=== PATIENT | male | born 1960 | race Caucasian/White ===

== ENCOUNTER → 2017-03-26 | Day surgery (SDC) | payer OTHER ==
[~2017-03-26] MED LIST: BUPIVACAINE HCL PF 0.25% 30 ML VIAL ONE; LACTATED RINGER'S 1000 ML INJ 1,000 ML ONE; LIDOCAINE HCL 1% PF 30 ML VIAL ONE; LOSA50TA PO; MIDAZOLAM HCL 2 MG/2 ML VIAL ONE; NEOMYCIN/POLYMYXIN/BACITRACIN OINT 15 GM TUBE ONE; ONDANSETRON HCL 4 MG/2 ML VIAL IV PUSH ONE; PROPOFOL 200 MG/20 ML AMP IV ONE; TEST200I13 IM; ceFAZolin INJ 1,000 MG VIAL ONE
--- NOTE | 2017-03-26 15:06 | TN ---
cc: SHAMIR ANTHONY M.D. DATE OF SURGERY: 03/26/2017 PREOPERATIVE DIAGNOSIS 1. 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 2. Penile lesions of unknown behavior (ICD-10 code N50.9). POSTOPERATIVE DIAGNOSIS 1. 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 2. Penile lesions of unknown behavior (ICD-10 code N50.9). PROCEDURE 1. Excision of malignant penile lesion (4.5 cm)(CPT code 00771). 2. Excision of benign penile lesion (1.0 cm)(CPT code 08258). 3. Electrodesiccation of penile lesions (CPT code 01716). INDICATIONS Mr. 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 He additionally has another lesion on the ventral shaft of the penis that he wants excised and some smaller lesions on the suprapubic area, penis and scrotum that he wants removed. DETAILS OF PROCEDURE The procedure as well as risks and benefits were explained to the patient. Informed consent was obtained. The patient was taken to the major operative theatre where he was placed in supine position. The patient was identified as well as the operative site. A universal timeout was performed in standard fashion. At this time general anesthetic and prophylactic intravenous antibiotics consisting of Ancef one gram were administered. After adequate anesthetic his genitalia and groin were prepped and draped in the usual sterile fashion. At this time the previously biopsied lesion at the dorsal base of the penis was excised in an elliptical incision including a margin of normal-appearing skin to the appropriate depth and then using electrocautery meticulous hemostasis was achieved. The deep layers were closed with 4-0 Monocryl in an interrupted fashion and the skin was closed with 3-0 Vicryl in an interrupted fashion. Polysporin ointment was applied. At the mid ventral shaft of the penis a pigmented lesion was also excised elliptically. Hemostasis again with electrocautery and closed with 3-0 Vicryl suture. He then had probably a dozen small lesions some of which were on the suprapubic area of the penis and scrotum. These were all less than 5 mm. These were electrodesiccated and hyfrecated using pinpoint electrocautery to the appropriate depth. Polysporin ointment was applied to all the wounds. There were no additional lesions identified. The patient tolerated the procedure well, emerged from anesthetic without difficulty and was transferred to the recovery room in stable condition to be discharged home when criteria is met. MD THANH Contreras/DAVID /2:37 PM /3:00 PM YOHANNES
== END | disposition home or self-care (01) ==
LOC: ESDC 11:07
PROVIDERS: ATTEND Urology
DX: D07.4 Carcinoma in situ of penis (principal); L30.9 Dermatitis, unspecified; L98.9 Disorder of the skin and subcutaneous tissue, unspecified
CPT/HCPCS: 00920; 11421; 11626; 54055; 88305; J0690; J2250; J2405; J3010; J7120